=== PATIENT | female | born 1980 | race Caucasian/White ===

== ENCOUNTER 2016-11-09 22:25 | Emergency (ER) | payer OTHER ==
[2016-11-09 22:31] VITALS: RESP 18
[2016-11-09] MEDS ORDERED: DEXAMETHASONE SOD PHOSPHATE 10 MG/ML 1 ML VIAL IV STA (22:37)
[2016-11-09] MEDS ORDERED: diphenhydrAMINE 50 MG/ML 1 ML VIAL IVP STA (22:37)
[2016-11-09] MEDS ORDERED: KETOROLAC 30 MG/ML 1 ML VIAL IVP STA (22:37)
[2016-11-09] MEDS ORDERED: METOCLOPRAMIDE 5 MG/ML 2 ML VIAL IVP STA (22:37)
--- NOTE | 2016-11-09 22:41 | ED ---
Headache HPI - General Chief Complaint: Headache Stated Complaint: Headache Time Seen by Provider: 11/09/16 22:33 Mode of arrival: ambulatory Limitations: no limitations - History of Present Illness Initial Comments: Patient is a 36-year-old female presents with a chief complaint of headache. The patient has a history of migraine headaches. Patient states that her current headache has been going on for 6 days. She states that the pain is less intense in the morning however he gets worse throughout the day. Patient states that she is having a headache in the frontal parietal and occipital regions of her head. She states this is a very normal migraine for her. She takes Topamax daily for control of headaches and states that since she has been on the Topamax the frequency of her headaches has gotten less. Patient denies any neurological dysfunction. She does admit to mild nausea however she has not vomited. The patient has no other complaints at this time. - Related Data Home Medications Medication Instructions Recorded Confirmed Calcium Carbonate [Calcium] 600 mg PO BID 11/09/16 11/09/16 Lipitor (Unknown Dose) 1 tab PO HS 11/09/16 11/09/16 Naproxen (Unknown Dose) 1 tab PO Q6H PRN 11/09/16 11/09/16 Omeprazole 40 mg PO DAILY 11/09/16 11/09/16 Topiramate [Topamax] 25 mg PO BID 11/09/16 11/09/16 Allergies Allergy/AdvReac Type Severity Reaction Status Date / Time No Known Allergies Allergy Verified 11/09/16 22:39 Review of Systems ROS Statement: Those systems with pertinent positive or pertinent negative responses have been documented in the HPI. ROS Other: All systems not noted in ROS Statement are negative. Constitutional: Denies: fever, chills Eyes: Denies: vision change ENT: Denies: ear pain, throat pain Respiratory: Denies: cough, dyspnea Cardiovascular: Denies: chest pain Endocrine: Denies: fatigue Gastrointestinal: Reports: nausea. Denies: abdominal pain, vomiting Genitourinary: Denies: dysuria Musculoskeletal: Denies: back pain Skin: Denies: rash Neurological: Reports: headache. Denies: weakness, numbness, paresthesias, abnormal gait Past Medical History Past Medical History: Hyperlipidemia Additional Past Medical History / Comment(s): migraines History of Any Multi-Drug Resistant Organisms: None Reported Past Surgical History: Cholecystectomy, Hernia Repair, Tubal Ligation Past Psychological History: No Psychological Hx Reported Smoking Status: Current every day smoker Past Alcohol Use History: None Reported Past Drug Use History: None Reported General Exam Limitations: no limitations General appearance: alert, in no apparent distress Head exam: Present: atraumatic, normocephalic Eye exam: Present: normal appearance, PERRL, EOMI ENT exam: Present: normal exam Neck exam: Present: normal inspection. Absent: tenderness, meningismus Respiratory exam: Present: normal lung sounds bilaterally. Absent: respiratory distress Cardiovascular Exam: Present: regular rate, normal rhythm, normal heart sounds GI/Abdominal exam: Present: soft. Absent: distended, tenderness Rectal exam: Present: deferred Extremities exam: Present: normal inspection Back exam: Present: normal inspection Neurological exam: Present: alert, oriented X3 Psychiatric exam: Present: normal affect, normal mood Skin exam: Present: warm, dry, intact Course Vital Signs 11/09/16 22:27 Temperature 97.3 F L Pulse Rate 95 Respiratory 18 Rate Blood Pressure 119/78 O2 Sat by Pulse 99 Oximetry Medical Decision Making - Medical Decision Making The patient presents with a chief complaint of a migraine headache. Patient states that this is a very typical headache for her. Physical examination does not show any neurologic deficit. On initial evaluation, vital signs are stable. Patient was noted to gait normally. Patient will be given Toradol, Reglan, Benadryl, Decadron, and a liter of IV fluids. Patient will be reexamined. 11:34 PM On reevaluation, the patient states that her headache is almost completely resolved. At this time the patient would like to be discharged home. I discussed with the patient that she needs to follow up with her primary care physician or return to the emergency department if her symptoms worsen or change. At this time all of her questions are answered as best my ability, patient is stable for discharge. Disposition Clinical Impression: Migraine headache Disposition: HOME SELF-CARE Condition: Good Instructions: Acute Headache (ED) Referrals: Nonstaff,Physician [Primary Care Provider] - 1-2 days
[2016-11-10 00:01] VITALS: BP 144/69; PULSE 77; TEMP 97.7
== END 2016-11-10 | disposition home or self-care (01) ==
LOC: EC 22:25
DX: G43.909 Migraine, unspecified, not intractable, without status migrainosus (principal); E78.5 Hyperlipidemia, unspecified; F17.200 Nicotine dependence, unspecified, uncomplicated; Z79.899 Other long term (current) drug therapy
CPT/HCPCS: 99283; 96374; 96375 ×3; J1200; J1100; J2765; J1885

== ENCOUNTER 2016-12-23 20:18 | Emergency (ER) | payer OTHER ==
[2016-12-23 20:53] VITALS: BP 135/72; PULSE 107; RESP 20; TEMP 98.2
[2016-12-23] MEDS ORDERED: DEXAMETHASONE 4 MG TAB PO STA (22:11)
--- NOTE | 2016-12-23 22:16 | ED ---
ENT HPI - General Chief complaint: ENT Stated complaint: Fever Time Seen by Provider: 12/23/16 22:02 Source: patient Mode of arrival: ambulatory Limitations: no limitations - History of Present Illness Initial comments: Patient is a 36-year-old female presenting to the emergency department with chief complaint of sore throat that started at 2:30 AM when patient woke up last night. Patient reports chills. Patient reports pain with swallowing. Denies cough or ear pain, chest pain, or abdominal pain. Patient states she had diarrhea yesterday but none today. Patient denies dysuria or urgency. Patient states she took Motrin and Mucinex prior to arrival. - Related Data Home Medications Medication Instructions Recorded Confirmed Calcium Carbonate [Calcium] 600 mg PO BID 11/09/16 11/09/16 Lipitor (Unknown Dose) 1 tab PO HS 11/09/16 11/09/16 Naproxen (Unknown Dose) 1 tab PO Q6H PRN 11/09/16 11/09/16 Omeprazole 40 mg PO DAILY 11/09/16 11/09/16 Topiramate [Topamax] 25 mg PO BID 11/09/16 11/09/16 Allergies Allergy/AdvReac Type Severity Reaction Status Date / Time No Known Allergies Allergy Verified 12/23/16 20:53 Review of Systems ROS Statement: Those systems with pertinent positive or pertinent negative responses have been documented in the HPI. ROS Other: All systems not noted in ROS Statement are negative. Past Medical History Past Medical History: Hyperlipidemia Additional Past Medical History / Comment(s): migraines History of Any Multi-Drug Resistant Organisms: None Reported Past Surgical History: Cholecystectomy, Hernia Repair, Tubal Ligation Past Psychological History: No Psychological Hx Reported Smoking Status: Current every day smoker Past Alcohol Use History: None Reported Past Drug Use History: None Reported General Exam Limitations: no limitations General appearance: alert, in no apparent distress Head exam: Present: atraumatic, normocephalic, normal inspection Eye exam: Present: normal appearance. Absent: scleral icterus, conjunctival injection, periorbital swelling, periorbital tenderness ENT exam: Present: mucous membranes moist, TM's normal bilaterally, normal external ear exam. Absent: normal oropharynx (Posterior pharynx erythematous without exudate) Neck exam: Present: normal inspection, full ROM, lymphadenopathy (to right anterior neck). Absent: tenderness, meningismus Respiratory exam: Present: normal lung sounds bilaterally. Absent: respiratory distress, wheezes, rales, rhonchi Cardiovascular Exam: Present: normal rhythm, tachycardia, normal heart sounds. Absent: systolic murmur GI/Abdominal exam: Present: soft, normal bowel sounds. Absent: distended, tenderness Extremities exam: Present: normal inspection, full ROM, normal capillary refill Neurological exam: Present: alert, oriented X3, CN II-XII intact, normal gait, other (No focal deficits noted). Absent: motor sensory deficit Psychiatric exam: Present: normal affect, normal mood Skin exam: Present: warm, dry, intact, normal color Course Vital Signs 12/23/16 20:51 Temperature 98.2 F Pulse Rate 107 H Respiratory 20 Rate Blood Pressure 135/72 O2 Sat by Pulse 100 Oximetry Medical Decision Making - Medical Decision Making Acute pharyngitis, suspect viral. Strep screen negative. Influenza A and B PCR negative. Patient encouraged to continue Motrin for pain or fevers. Continue soft foods. Patient instructed to follow-up with primary care physician. Patient instructed to return to the emergency department with any new or worsening symptoms. - Lab Data Lab Results 12/23/16 12/23/16 Range/Units 22:10 22:10 Influenza Type A RNA Not Detected (Not Detectd) Influenza Type B (PCR) Not Detected (Not Detectd) Group A Strep Rapid Negative (Negative) Disposition Clinical Impression: Acute viral pharyngitis Disposition: HOME SELF-CARE Condition: Good Instructions: Pharyngitis (ED) Additional Instructions: Continue Tylenol or Motrin for fever and pain. Continue soft foods. Follow-up with primary care physician as needed. Please return to emergency department if symptoms do not improve or get worse. Referrals: Nonstaff,Physician [Primary Care Provider] - 1-2 days Time of Disposition: 22:54
== END 2016-12-23 22:58 | disposition home or self-care (01) ==
LOC: EC 20:18
DX: J02.9 Acute pharyngitis, unspecified (principal); E78.5 Hyperlipidemia, unspecified; F17.200 Nicotine dependence, unspecified, uncomplicated; Z79.899 Other long term (current) drug therapy
CPT/HCPCS: 87081; 87430; 87502; 99283; J8540

== ENCOUNTER 2017-01-11 16:19 | Emergency (ER) | payer OTHER ==
[2017-01-11 16:55] VITALS: RESP 18
--- NOTE | 2017-01-11 17:36 | ED ---
General Adult HPI - General Chief complaint: Abdominal Pain Stated complaint: Rash/Abd Pain Time Seen by Provider: 01/11/17 17:10 Source: patient, RN notes reviewed Mode of arrival: ambulatory Limitations: no limitations - History of Present Illness Initial comments: 36-year-old female presents emergency department with a chief complaint of diffuse itchy rash. Patient states that this rash started yesterday. Patient states she has had a bradycardia these under her breasts. Been on the rash is all over her body. Patient states that she did start a new lotion recently. Patient states she's had a little upper abdominal cramping with this as well. She denies any diarrhea any changes in urination or bowel bladder habits. She has a nausea vomiting any fever chills. Patient states she was concerned with a rash that she thought that she should be seen. She has a history of a rash like this about 23 years ago that went away with medicine but she states that they never found out what causes Either. They were concerned due to the continued symptoms. Patient denies any recent fever, chills, shortness of breath , chest pain, back pain, nausea vomiting, numbness or tingling, dysuria or hematuria, constipation or diarrhea, headaches or visual changes, or any other current symptoms. - Related Data Home Medications Medication Instructions Recorded Confirmed Calcium Carbonate [Calcium] 600 mg PO DAILY 01/11/17 01/11/17 Cranberry Fruit Extract [Cranberry] 500 mg PO DAILY 01/11/17 01/11/17 Flaxseed Oil [[place]-3 Flaxseed Oil] 1,000 mg PO DAILY 01/11/17 01/11/17 Multivit with Calcium,Iron,Min 1 tab PO DAILY 01/11/17 01/11/17 [Women's Multivitamin] Omeprazole 20 mg PO BID 01/11/17 01/11/17 Topiramate [Topamax] 50 mg PO BID 01/11/17 01/11/17 Vitamin B Complex 1 cap PO DAILY 01/11/17 01/11/17 Previous Rx's Medication Instructions Recorded Famotidine [Pepcid] 20 mg PO BID #10 tablet 01/11/17 Nystatin 100,000 Unit/gm Powd 1 applic TOPICAL TID 7 Days gm 01/11/17 [Mycostatin Powder] diphenhydrAMINE [Benadryl] 50 mg PO HS PRN #5 capsule 01/11/17 predniSONE 50 mg PO DAILY #5 tab 01/11/17 Allergies Allergy/AdvReac Type Severity Reaction Status Date / Time No Known Allergies Allergy Verified 01/11/17 17:17 Review of Systems ROS Statement: Those systems with pertinent positive or pertinent negative responses have been documented in the HPI. ROS Other: All systems not noted in ROS Statement are negative. Past Medical History Past Medical History: GERD/Reflux, Hyperlipidemia Additional Past Medical History / Comment(s): migraines History of Any Multi-Drug Resistant Organisms: None Reported Past Surgical History: Cholecystectomy, Ear Surgery, Hernia Repair, Orthopedic Surgery, Tubal Ligation Past Psychological History: No Psychological Hx Reported Smoking Status: Current every day smoker Past Alcohol Use History: None Reported Past Drug Use History: None Reported General Exam - General Exam Comments Initial Comments: General: The patient is awake and alert, in no distress, and does not appear acutely ill. Eye: Pupils are equal, round and reactive to light. Ears, nose, mouth and throat: There are moist mucous membranes. Neck: The neck is supple, there is no tenderness. Cardiovascular: There is a regular rate and rhythm. No murmur, rub or gallop is appreciated. Respiratory: Lungs are clear to auscultation, respirations are non-labored, breath sounds are equal. No wheezes, stridor, rales, or rhonchi. Gastrointestinal: Soft, non-distended, non-tender abdomen without masses or organomegaly noted. There is no rebound or guarding present. No CVA tenderness. Bowel sounds are unremarkable. Back: There is no tenderness to palpation in the midline. There is no obvious deformity. No rashes noted. Musculoskeletal: Normal ROM, no tenderness, There is no pedal edema. There is no calf tenderness or swelling. Sensation intact. Pulses equal bilaterally 2+. Neurological: CN II-XII intact, There are no obvious motor or sensory deficits. Coordination appears grossly intact. Speech is normal. Skin: Skin is warm and dry and no rashes or lesions are noted. Psychiatric: Cooperative, appropriate mood & affect, normal judgment. Limitations: no limitations Course Vital Signs 01/11/17 16:50 Temperature 98.2 F Pulse Rate 82 Respiratory 18 Rate Blood Pressure 124/74 O2 Sat by Pulse 98 Oximetry Medical Decision Making - Medical Decision Making 36-year-old female presents emergency 5 chief complaint of what appears to be a urticarial type rash as well as candidiasis to the under side of the breast. This time we will start patient on oral medications for her urticaria as well as a cream for her rash to the breast. We did discuss follow-up return parameters all questions. Patient stated that she understood and she is tender with this plan. All questions have been answered. Patient will be discharged. Disposition Clinical Impression: Urticaria, Candidiasis of breast Disposition: HOME SELF-CARE Condition: Stable Instructions: Urticaria (ED), Skin Yeast Infection (ED) Additional Instructions: Please use medication as discussed. Please follow up with family doctor if symptoms have not improved over the next two days. Please return to the emergency room if your symptoms increase or worsen or for any other concerns. Prescriptions: diphenhydrAMINE [Benadryl] 50 mg PO HS PRN #5 capsule PRN Reason: Itching Famotidine [Pepcid] 20 mg PO BID #10 tablet Nystatin 100,000 Unit/gm Powd [Mycostatin Powder] 1 applic TOPICAL TID 7 Days gm predniSONE 50 mg PO DAILY #5 tab Referrals: Jordy Figueroa DO [Doctor of Osteopathic Medicine] - 1-2 days Time of Disposition: 17:33
[2017-01-11 18:09] VITALS: BP 141/83; PULSE 100; TEMP 97.4
== END 2017-01-11 18:12 | disposition home or self-care (01) ==
LOC: EC 16:19
DX: L50.9 Urticaria, unspecified (principal); B37.89 Other sites of candidiasis; R10.10 Upper abdominal pain, unspecified; R00.1 Bradycardia, unspecified; R11.2 Nausea with vomiting, unspecified; K21.9 Gastro-esophageal reflux disease without esophagitis; F17.200 Nicotine dependence, unspecified, uncomplicated; Z79.899 Other long term (current) drug therapy; Z86.69 Personal history of other diseases of the nervous system and sense organs; Z90.49 Acquired absence of other specified parts of digestive tract
CPT/HCPCS: 99283

== ENCOUNTER 2017-10-16 21:26 | Emergency (ER) | payer OTHER ==
[2017-10-16 22:16] VITALS: RESP 18
[2017-10-16 22:54] LABS: Amorphous Sediment,Urine Rare /hpf; Appearance,Urine Turbid (Clear); Bacteria,Urine Occasional /hpf; Bilirubin,Urine Negative (Negative); Blood,Urine Negative (Negative); Color,Urine Yellow; Glucose,Urine (UA) Negative (Negative); Ketones,Urine Negative (Negative); Leukocyte Esterase,Urine Moderate (Negative); Nitrite,Urine Positive (Negative); PH, Urine 7.5 (5.0-8.0); Protein,Urine Negative (Negative); Specific Gravity,Urine 1.012 (1.001-1.035); Squamous Epithelial Cell,Urine 3 /hpf (0-4); Urobilinogen,Urine <2.0 mg/dL (<2.0); WBC,Urine 8 /hpf (0-5)
[2017-10-16 23:32] LABS: Basophils % (A) 0 %; Eosinophils # (A) 0.1 k/uL (0-0.7); Eosinophils % (A) 1 %; HCT 39.7 % (34.0-46.0); HGB 13.3 gm/dL (11.4-16.0); Lymphocytes # (A) 4.1 k/uL (1.0-4.8); Lymphocytes % (A) 40 %; MCHC 33.4 g/dL (31.0-37.0); MCV 86.9 fL (80.0-100.0); Mean Platelet Volume 6.4; Monocytes # (A) 0.4 k/uL (0-1.0); Monocytes % (A) 4 %; Neutrophils # (A) 5.4 k/uL (1.3-7.7); Neutrophils % (A) 53 %; Platelet Count 280 k/uL (150-450); RBC 4.58 m/uL (3.80-5.40); RDW 13.3 % (11.5-15.5); WBC 10.1 k/uL (3.8-10.6)
[2017-10-16 23:45] LABS: ALT 28 U/L (9-52); AST 19 U/L (14-36); Albumin 3.8 g/dL (3.5-5.0); Alkaline Phosphatase 92 U/L (38-126); Anion Gap 9 mmol/L; Blood Urea Nitrogen 19 mg/dL (7-17); Calcium 9.1 mg/dL (8.4-10.2); Carbon Dioxide 18 mmol/L (22-30); Chloride 111 mmol/L (98-107); Glucose 92 mg/dL (74-99); Potassium 3.6 mmol/L (3.5-5.1); Sodium 138 mmol/L (137-145); Total Bilirubin 0.3 mg/dL (0.2-1.3); Total Protein 6.8 g/dL (6.3-8.2)
[2017-10-17 00:07] LABS: Creatine Kinase 77 U/L (30-135)
[2017-10-17 00:20] LABS: Creatine Kinase MB 0.3 ng/mL (0.0-2.4); Troponin I <0.012 ng/mL (0.000-0.034)
--- NOTE | 2017-10-17 01:40 | ED ---
GI Bleed HPI - General Chief complaint: GI Bleed Stated complaint: Blood in stool Time Seen by Provider: 10/17/17 00:15 Source: patient Mode of arrival: ambulatory Limitations: no limitations - History of Present Illness Initial comments: This patient is a 37-year-old woman who presents to be evaluated for passing blood with some bowel movements. Patient relates that she had had a hard bowel movement, and then over the past couple of days she has had blood when she has a bowel movement and noticed it on the paper when wiping and also in the water of the toilet. Patient denies any abdominal or perianal pain today. She denies any symptoms of anemia including no chest pain, dyspnea, lightheadedness , palpitations or syncope MD complaint: blood on toilet paper, blood streaked stool Onset/Timin -: days(s) Quality: sharp Consistency: intermittent Improves with: none Worsens with: bowel movement Context: hemorrhoids Associated Symptoms: denies other symptoms - Related Data Home Medications Medication Instructions Recorded Confirmed Calcium Carbonate [Calcium] 600 mg PO DAILY 01/11/17 10/16/17 Cranberry Fruit Extract [Cranberry] 500 mg PO DAILY 01/11/17 10/16/17 Flaxseed Oil [[place]-3 Flaxseed Oil] 1,000 mg PO DAILY 01/11/17 10/16/17 Omeprazole 20 mg PO BID 01/11/17 10/16/17 Vitamin B Complex 1 cap PO DAILY 01/11/17 10/16/17 Naproxen Sodium [Aleve] 220 mg PO BID PRN 10/16/17 10/16/17 Topiramate [Topamax] 100 mg PO BID 10/16/17 10/16/17 Previous Rx's Medication Instructions Recorded EPINEPHrine (Auto Inject) [Epipen] 0.3 mg IM ONCE PRN #1 syringe 01/11/17 Docusate [Colace] 100 mg PO BID #20 capsule 10/17/17 Famotidine [Pepcid] 20 mg PO BID #14 tablet 10/17/17 Allergies Allergy/AdvReac Type Severity Reaction Status Date / Time No Known Allergies Allergy Verified 10/16/17 23:29 Review of Systems ROS Statement: Those systems with pertinent positive or pertinent negative responses have been documented in the HPI. ROS Other: All systems not noted in ROS Statement are negative. Constitutional: Denies: fever, chills, weakness Respiratory: Denies: cough, dyspnea Cardiovascular: Denies: chest pain, palpitations, edema, syncope Gastrointestinal: Reports: hematochezia. Denies: abdominal pain, nausea, vomiting, diarrhea, hematemesis, melena Genitourinary: Denies: dysuria, hematuria Musculoskeletal: Denies: back pain Skin: Denies: rash Neurological: Denies: headache, weakness Hematological/Lymphatic: Denies: easy bleeding Past Medical History Past Medical History: GERD/Reflux, Hyperlipidemia Additional Past Medical History / Comment(s): migraines, History of Any Multi-Drug Resistant Organisms: None Reported Past Surgical History: Cholecystectomy, Ear Surgery, Hernia Repair, Orthopedic Surgery, Tubal Ligation Past Psychological History: No Psychological Hx Reported Smoking Status: Current every day smoker Past Alcohol Use History: Occasional Past Drug Use History: None Reported General Exam Limitations: no limitations General appearance: alert, in no apparent distress Head exam: Present: atraumatic, normocephalic Eye exam: Present: normal appearance. Absent: scleral icterus, conjunctival injection Neck exam: Present: normal inspection Respiratory exam: Present: normal lung sounds bilaterally. Absent: respiratory distress, wheezes, rales, rhonchi, stridor Cardiovascular Exam: Present: regular rate, normal rhythm, normal heart sounds. Absent: systolic murmur, diastolic murmur, rubs, gallop GI/Abdominal exam: Present: soft, normal bowel sounds. Absent: distended, tenderness, guarding, rebound, rigid, mass, pulsatile mass, hernia Rectal exam: Present: normal inspection, normal rectal tone, tenderness, other ( There is an anal fissure present). Absent: black stool, bloody stool, hemorrhoids, mass Extremities exam: Present: normal inspection, normal capillary refill. Absent: pedal edema, calf tenderness Back exam: Present: normal inspection. Absent: CVA tenderness (R), CVA tenderness (L) Skin exam: Present: warm, dry, intact, normal color. Absent: rash Course Vital Signs 10/16/17 10/16/17 10/17/17 22:11 23:56 01:58 Temperature 98.2 F 98.0 F Pulse Rate 77 80 70 Respiratory 18 18 18 Rate Blood Pressure 116/80 107/73 121/70 O2 Sat by Pulse 97 97 98 Oximetry Medical Decision Making - Medical Decision Making Patient is a 37-year-old woman who has had blood with bowel movements. On exam there is an anal fissure. The patient is hemodynamically stable and her blood counts are normal as well. We discussed further care and follow-up as well as return parameters. - Lab Data Result diagrams: 10/16/17 23:01 10/16/17 23:01 Lab Results 10/16/17 10/16/17 10/16/17 Range/Units 22:16 23:01 23:01 WBC 10.1 (3.8-10.6) k/uL RBC 4.58 (3.80-5.40) m/uL Hgb 13.3 (11.4-16.0) gm/dL Hct 39.7 (34.0-46.0) % MCV 86.9 (80.0-100.0) fL MCH 29.0 (25.0-35.0) pg MCHC 33.4 (31.0-37.0) g/dL RDW 13.3 (11.5-15.5) % Plt Count 280 (150-450) k/uL Neutrophils % 53 % Lymphocytes % 40 % Monocytes % 4 % Eosinophils % 1 % Basophils % 0 % Neutrophils # 5.4 (1.3-7.7) k/uL Lymphocytes # 4.1 (1.0-4.8) k/uL Monocytes # 0.4 (0-1.0) k/uL Eosinophils # 0.1 (0-0.7) k/uL Basophils # 0.0 (0-0.2) k/uL APTT (22.0-30.0) sec Sodium (137-145) mmol/L Potassium (3.5-5.1) mmol/L Chloride (98-107) mmol/L Carbon Dioxide (22-30) mmol/L Anion Gap mmol/L BUN (7-17) mg/dL Creatinine (0.52-1.04) mg/dL Est GFR (CKD-EPI)AfAm (>60 ml/min/1.73 sqM) Est GFR (CKD-EPI)NonAf (>60 ml/min/1.73 sqM) Glucose (74-99) mg/dL Calcium (8.4-10.2) mg/dL Total Bilirubin (0.2-1.3) mg/dL AST (14-36) U/L ALT (9-52) U/L Alkaline Phosphatase (38-126) U/L Total Creatine Kinase 77 (30-135) U/L CK-MB (CK-2) 0.3 (0.0-2.4) ng/mL CK-MB (CK-2) Rel Index 0.4 Troponin I <0.012 (0.000-0.034) ng/mL Total Protein (6.3-8.2) g/dL Albumin (3.5-5.0) g/dL Urine Color Yellow Urine Appearance Turbid H (Clear) Urine pH 7.5 (5.0-8.0) Ur Specific [place] 1.012 (1.001-1.035) Urine Protein Negative (Negative) Urine Glucose (UA) Negative (Negative) Urine Ketones Negative (Negative) Urine Blood Negative (Negative) Urine Nitrite Positive H (Negative) Urine Bilirubin Negative (Negative) Urine Urobilinogen <2.0 (<2.0) mg/dL Ur Leukocyte Esterase Moderate H (Negative) Urine WBC 8 H (0-5) /hpf Ur Squamous Epith Cells 3 (0-4) /hpf Amorphous Sediment Rare H (None) /hpf Urine Bacteria Occasional H (None) /hpf Blood Type Blood Type Confirm Blood Type Recheck Antibody Screen Spec Expiration Date 10/16/17 10/16/17 10/16/17 Range/Units 23:01 23:01 23:01 WBC (3.8-10.6) k/uL RBC (3.80-5.40) m/uL Hgb (11.4-16.0) gm/dL Hct (34.0-46.0) % MCV (80.0-100.0) fL MCH (25.0-35.0) pg MCHC (31.0-37.0) g/dL RDW (11.5-15.5) % Plt Count (150-450) k/uL Neutrophils % % Lymphocytes % % Monocytes % % Eosinophils % % Basophils % % Neutrophils # (1.3-7.7) k/uL Lymphocytes # (1.0-4.8) k/uL Monocytes # (0-1.0) k/uL Eosinophils # (0-0.7) k/uL Basophils # (0-0.2) k/uL APTT 22.5 (22.0-30.0) sec Sodium 138 (137-145) mmol/L Potassium 3.6 (3.5-5.1) mmol/L Chloride 111 H (98-107) mmol/L Carbon Dioxide 18 L (22-30) mmol/L Anion Gap 9 mmol/L BUN 19 H (7-17) mg/dL Creatinine 0.71 (0.52-1.04) mg/dL Est GFR (CKD-EPI)AfAm >90 (>60 ml/min/1.73 sqM) Est GFR (CKD-EPI)NonAf >90 (>60 ml/min/1.73 sqM) Glucose 92 (74-99) mg/dL Calcium 9.1 (8.4-10.2) mg/dL Total Bilirubin 0.3 (0.2-1.3) mg/dL AST 19 (14-36) U/L ALT 28 (9-52) U/L Alkaline Phosphatase 92 (38-126) U/L Total Creatine Kinase (30-135) U/L CK-MB (CK-2) (0.0-2.4) ng/mL CK-MB (CK-2) Rel Index Troponin I (0.000-0.034) ng/mL Total Protein 6.8 (6.3-8.2) g/dL Albumin 3.8 (3.5-5.0) g/dL Urine Color Urine Appearance (Clear) Urine pH (5.0-8.0) Ur Specific [place] (1.001-1.035) Urine Protein (Negative) Urine Glucose (UA) (Negative) Urine Ketones (Negative) Urine Blood (Negative) Urine Nitrite (Negative) Urine Bilirubin (Negative) Urine Urobilinogen (<2.0) mg/dL Ur Leukocyte Esterase (Negative) Urine WBC (0-5) /hpf Ur Squamous Epith Cells (0-4) /hpf Amorphous Sediment (None) /hpf Urine Bacteria (None) /hpf Blood Type O Positive Blood Type Confirm Blood Type Recheck CABO Indicated Antibody Screen NEGATIVE Spec Expiration Date 10/19/2017 - 230010/16/17 Range/Units 23:23 WBC (3.8-10.6) k/uL RBC (3.80-5.40) m/uL Hgb (11.4-16.0) gm/dL Hct (34.0-46.0) % MCV (80.0-100.0) fL MCH (25.0-35.0) pg MCHC (31.0-37.0) g/dL RDW (11.5-15.5) % Plt Count (150-450) k/uL Neutrophils % % Lymphocytes % % Monocytes % % Eosinophils % % Basophils % % Neutrophils # (1.3-7.7) k/uL Lymphocytes # (1.0-4.8) k/uL Monocytes # (0-1.0) k/uL Eosinophils # (0-0.7) k/uL Basophils # (0-0.2) k/uL APTT (22.0-30.0) sec Sodium (137-145) mmol/L Potassium (3.5-5.1) mmol/L Chloride (98-107) mmol/L Carbon Dioxide (22-30) mmol/L Anion Gap mmol/L BUN (7-17) mg/dL Creatinine (0.52-1.04) mg/dL Est GFR (CKD-EPI)AfAm (>60 ml/min/1.73 sqM) Est GFR (CKD-EPI)NonAf (>60 ml/min/1.73 sqM) Glucose (74-99) mg/dL Calcium (8.4-10.2) mg/dL Total Bilirubin (0.2-1.3) mg/dL AST (14-36) U/L ALT (9-52) U/L Alkaline Phosphatase (38-126) U/L Total Creatine Kinase (30-135) U/L CK-MB (CK-2) (0.0-2.4) ng/mL CK-MB (CK-2) Rel Index Troponin I (0.000-0.034) ng/mL Total Protein (6.3-8.2) g/dL Albumin (3.5-5.0) g/dL Urine Color Urine Appearance (Clear) Urine pH (5.0-8.0) Ur Specific [place] (1.001-1.035) Urine Protein (Negative) Urine Glucose (UA) (Negative) Urine Ketones (Negative) Urine Blood (Negative) Urine Nitrite (Negative) Urine Bilirubin (Negative) Urine Urobilinogen (<2.0) mg/dL Ur Leukocyte Esterase (Negative) Urine WBC (0-5) /hpf Ur Squamous Epith Cells (0-4) /hpf Amorphous Sediment (None) /hpf Urine Bacteria (None) /hpf Blood Type Blood Type Confirm O Positive Blood Type Recheck Antibody Screen Spec Expiration Date Disposition Clinical Impression: Anal fissure Disposition: HOME SELF-CARE Condition: Good Instructions: Gastrointestinal Bleeding (ED) Prescriptions: Docusate [Colace] 100 mg PO BID #20 capsule Famotidine [Pepcid] 20 mg PO BID #14 tablet Is patient prescribed a controlled substance at d/c from ED?: No Referrals: None,Stated [Primary Care Provider] - 1-2 days Emilia Kong MD [STAFF PHYSICIAN] - 1-2 days
[2017-10-17 01:59] VITALS: BP 121/70; PULSE 70; TEMP 98
== END 2017-10-17 02:13 | disposition home or self-care (01) ==
LOC: EC 21:26
DX: K60.2 Anal fissure, unspecified (principal); K21.9 Gastro-esophageal reflux disease without esophagitis; E78.5 Hyperlipidemia, unspecified; G43.909 Migraine, unspecified, not intractable, without status migrainosus; F17.200 Nicotine dependence, unspecified, uncomplicated; Z79.899 Other long term (current) drug therapy; Z90.49 Acquired absence of other specified parts of digestive tract
CPT/HCPCS: 36415; 80053; 81001; 82550; 82553; 84484; 85025; 85730; 86850; 86900; 86901; 99284

== ENCOUNTER 2018-04-18 17:31 | Emergency (ER) | payer OTHER ==
[2018-04-18 17:35] VITALS: TEMP 97.7
[2018-04-18] MEDS ORDERED: SODIUM CHLORIDE 0.9% 1,000 ML IV ONE (17:44)
[2018-04-18] MEDS ORDERED: KETOROLAC 30 MG/ML 1 ML VIAL IVP STA (17:44)
[2018-04-18] MEDS ORDERED: diphenhydrAMINE 50 MG/ML 1 ML VIAL IVP STA (17:44)
[2018-04-18] MEDS ORDERED: METOCLOPRAMIDE 5 MG/ML 2 ML VIAL IVP STA (17:44)
--- NOTE | 2018-04-18 18:10 | ED ---
Headache HPI - General Chief Complaint: Headache Stated Complaint: migraine Time Seen by Provider: 04/18/18 17:36 Source: patient, RN notes reviewed Mode of arrival: ambulatory Limitations: no limitations - History of Present Illness Initial Comments: 37-year-old female presents emergency Department chief complaint of migraine headaches. Patient states that she has suffered with them for last 10 years is scheduled to see a neurologist next week. Patient states that she was on Topamax but has ran out and was unable to get into her physician for this. Patient denies any focal weakness. Patient states this feels like her typical migraine headache which is diffuse in nature she does have some mild photophobia. Intermittent nausea no vomiting. Patient has tried some Tylenol with no relief. Patient denies any head trauma. Denies any chest pain or shortness breath. - Related Data Home Medications Medication Instructions Recorded Confirmed Omeprazole 20 mg PO BID 01/11/17 04/18/18 Topiramate [Topamax] 100 mg PO BID 10/16/17 04/18/18 Naproxen [Naprosyn] 500 mg PO Q6H 04/18/18 04/18/18 Previous Rx's Medication Instructions Recorded EPINEPHrine (Auto Inject) [Epipen] 0.3 mg IM ONCE PRN #1 syringe 01/11/17 Topiramate [Topamax] 50 mg PO BID #20 tab 04/18/18 Allergies Allergy/AdvReac Type Severity Reaction Status Date / Time latex Allergy Rash/Hives Verified 04/18/18 17:53 Review of Systems ROS Statement: Those systems with pertinent positive or pertinent negative responses have been documented in the HPI. ROS Other: All systems not noted in ROS Statement are negative. Past Medical History Past Medical History: GERD/Reflux, Hyperlipidemia Additional Past Medical History / Comment(s): migraines, History of Any Multi-Drug Resistant Organisms: None Reported Past Surgical History: Cholecystectomy, Ear Surgery, Hernia Repair, Orthopedic Surgery, Tubal Ligation Past Psychological History: No Psychological Hx Reported Smoking Status: Current every day smoker Past Alcohol Use History: Occasional Past Drug Use History: None Reported General Exam Limitations: no limitations General appearance: alert, in no apparent distress Head exam: Present: atraumatic, normocephalic, normal inspection Eye exam: Present: normal appearance, PERRL, EOMI. Absent: scleral icterus, conjunctival injection, periorbital swelling ENT exam: Present: normal exam, normal oropharynx, mucous membranes moist, TM's normal bilaterally, normal external ear exam Neck exam: Present: normal inspection, full ROM. Absent: tenderness, meningismus, lymphadenopathy Respiratory exam: Present: normal lung sounds bilaterally. Absent: respiratory distress, wheezes, rales, rhonchi, stridor Cardiovascular Exam: Present: regular rate, normal rhythm, normal heart sounds. Absent: systolic murmur, diastolic murmur, rubs, gallop, clicks GI/Abdominal exam: Present: soft, normal bowel sounds. Absent: distended, tenderness, guarding, rebound, rigid Neurological exam: Present: alert, oriented X3, CN II-XII intact, reflexes normal, other (Finger to nose intact bilaterally without shooting, heel to mo normal). Absent: motor sensory deficit Skin exam: Present: warm, dry, intact, normal color. Absent: rash Course Vital Signs 04/18/18 04/18/18 17:32 18:28 Temperature 97.7 F Pulse Rate 89 87 Respiratory 18 20 Rate Blood Pressure 129/81 120/81 O2 Sat by Pulse 97 98 Oximetry Medical Decision Making - Medical Decision Making 37-year-old female presented for migraine headache. Patient has underlying chronic migraines. She did receive Toradol, Reglan, IV fluids, Benadryl and her headache has resolved. Patient has follow-up next week with urology and return parameters were discussed. Disposition Clinical Impression: Migraine Disposition: HOME SELF-CARE Condition: Stable Instructions (If sedation given, give patient instructions): Acute Headache (ED) Additional Instructions: Please return to the Emergency Department if symptoms worsen or any other concerns. Prescriptions: Topiramate [Topamax] 50 mg PO BID #20 tab Is patient prescribed a controlled substance at d/c from ED?: No Referrals: Nonstaff,Physician [Primary Care Provider] - 1-2 days Time of Disposition: 19:10
[2018-04-18 19:13] VITALS: BP 110/68; PULSE 83; RESP 15
== END 2018-04-18 19:21 | disposition home or self-care (01) ==
LOC: EC 17:31
DX: G43.909 Migraine, unspecified, not intractable, without status migrainosus (principal); K21.9 Gastro-esophageal reflux disease without esophagitis; F17.200 Nicotine dependence, unspecified, uncomplicated; Z91.040 Latex allergy status; Z79.1 Long term (current) use of non-steroidal anti-inflammatories (NSAID); Z79.899 Other long term (current) drug therapy
CPT/HCPCS: 99283; 96374; 96375 ×2; 96361; J1200; J2765; J1885

== ENCOUNTER 2018-08-25 20:00 | Emergency (ER) | payer OTHER ==
[2018-08-25 20:11] VITALS: RESP 17
[2018-08-25] MEDS ORDERED: DEXAMETHASONE SOD PHOSPHATE 10 MG/ML 1 ML VIAL IM STA (20:49)
--- NOTE | 2018-08-25 21:22 | ED ---
Allergic Reaction HPI - General Chief complaint: Allergic Reaction Stated complaint: Poss allergic reaction, throat pain Time Seen by Provider: 08/25/18 20:17 Source: patient Mode of arrival: ambulatory - History of Present Illness Initial Comments: Patient is a 38-year-old female presenting to emergency Department with throat discomfort. Patient reports approximately 1 week ago she received a bee sting along the anterior aspect of the right lower leg. Patient reports she is ALLERGIC to bee venom. Patient reports taking Benadryl at time of incident because she did not have an EpiPen with her. At the time of incident patient reports her "throat was swelling up" but states the Benadryl help with the swelling. Patient reports ever since then she feels discomfort in her throat. Patient denies difficulty swallowing, drooling, neck swelling, nausea, vomiting, headache. Patient denies taking any other medication to alleviate his symptoms. - Related Data Home Medications Medication Instructions Recorded Confirmed Omeprazole 20 mg PO BID 01/11/17 08/25/18 Topiramate [Topamax] 100 mg PO BID 10/16/17 08/25/18 Naproxen [Naprosyn] 500 mg PO BID 04/18/18 08/25/18 Albuterol Inhaler [Ventolin Hfa 1 - 2 puff INHALATION RT-Q6H PRN 08/25/18 08/25/18 Inhaler] Amitriptyline HCl [Elavil] 50 mg PO HS 08/25/18 08/25/18 Atorvastatin [Lipitor] 20 mg PO DAILY 08/25/18 08/25/18 Galcanezumab-Gnlm [Emgality] 120 mg SQ Q28D 08/25/18 08/25/18 Allergies Allergy/AdvReac Type Severity Reaction Status Date / Time latex Allergy Rash/Hives Verified 08/25/18 20:47 Review of Systems ROS Statement: Those systems with pertinent positive or pertinent negative responses have been documented in the HPI. ROS Other: All systems not noted in ROS Statement are negative. Past Medical History Past Medical History: GERD/Reflux, Hyperlipidemia Additional Past Medical History / Comment(s): migraines, History of Any Multi-Drug Resistant Organisms: None Reported Past Surgical History: Cholecystectomy, Ear Surgery, Hernia Repair, Orthopedic Surgery, Tubal Ligation Past Psychological History: No Psychological Hx Reported Smoking Status: Current every day smoker Past Alcohol Use History: Occasional Past Drug Use History: None Reported General Exam Limitations: no limitations General appearance: alert, in no apparent distress Head exam: Present: atraumatic, normocephalic, normal inspection Eye exam: Present: normal appearance, PERRL, EOMI Pupils: Present: normal accommodation ENT exam: Present: normal exam, normal oropharynx (No lesions, normal tonsils, no uveal deviation, no erythema or edema,), mucous membranes moist, TM's normal bilaterally, normal external ear exam Neck exam: Present: normal inspection, full ROM. Absent: tenderness, meningismus, lymphadenopathy Respiratory exam: Present: normal lung sounds bilaterally Cardiovascular Exam: Present: regular rate, normal rhythm, normal heart sounds Extremities exam: Present: normal inspection, full ROM Back exam: Present: normal inspection, full ROM Neurological exam: Present: alert, oriented X3 Psychiatric exam: Present: normal affect, normal mood Skin exam: Present: warm, intact, normal color Course Vital Signs 08/25/18 20:06 Temperature 97.7 F Pulse Rate 119 H Respiratory 17 Rate Blood Pressure 147/105 O2 Sat by Pulse 98 Oximetry Medical Decision Making - Medical Decision Making Patient is a 2-year-old female presents emergency Department with throat discomfort. Patient was given 10 mg of Decadron. Patient reports feeling much better and the discomfort is completely gone. Patient advised to follow-up with an ENT specialist. Strict return parameters were thoroughly discussed with patient who is understanding and agreeable. Case discussed with physician. Disposition Clinical Impression: Throat discomfort Disposition: HOME SELF-CARE Condition: Stable Instructions (If sedation given, give patient instructions): Anaphylaxis (ED) Additional Instructions: Please follow-up with an ENT. Please return to emergency department if symptoms worsen. Is patient prescribed a controlled substance at d/c from ED?: No Referrals: Nonstaff,Physician [Primary Care Provider] - 1-2 days Harish Phelps DO [Doctor of Osteopathic Medicine] - 1-2 days Time of Disposition: 21:40
[2018-08-25 22:16] VITALS: BP 126/86; PULSE 91; TEMP 98.6
== END 2018-08-25 22:15 | disposition home or self-care (01) ==
LOC: EC 20:00
DX: R07.0 Pain in throat (principal); K21.9 Gastro-esophageal reflux disease without esophagitis; E78.5 Hyperlipidemia, unspecified; G43.909 Migraine, unspecified, not intractable, without status migrainosus; F17.200 Nicotine dependence, unspecified, uncomplicated; Z79.1 Long term (current) use of non-steroidal anti-inflammatories (NSAID); Z79.899 Other long term (current) drug therapy; Z91.040 Latex allergy status
CPT/HCPCS: 99283; 96372; J1100

== ENCOUNTER 2018-12-15 16:16 | Emergency (ER) | payer OTHER ==
[2018-12-15 16:34] VITALS: BP 123/88; PULSE 82; RESP 19; TEMP 97.8
--- NOTE | 2018-12-15 17:03 | ED ---
ENT HPI - General Chief complaint: ENT Stated complaint: poss FB in throat Time Seen by Provider: 12/15/18 16:38 Source: patient, RN notes reviewed, old records reviewed Mode of arrival: ambulatory Limitations: no limitations - History of Present Illness Initial comments: This is a 2-year-old female presenting with what she feels a foreign body in her throat she fell she felt last night. For evaluation of foreign body in throat. Patient denying difficulty swallowing or eating thinks symptoms of been persistent August. Patient states she tried to stick her finger until yesterday was able to find or feel something back there but was unable to notice anything on the mirror able to eat and drink appropriately MD complaint: sore throat (Feels like she has foreign body in throat) -: month(s) Location: throat Severity: mild Severity scale (1-10): 3 Quality: stabbing Consistency: intermittent Improves with: none Worsens with: none Associated Symptoms: pain with swallowing - Related Data Home Medications Medication Instructions Recorded Confirmed Omeprazole 20 mg PO BID 01/11/17 08/25/18 Topiramate [Topamax] 100 mg PO BID 10/16/17 08/25/18 Naproxen [Naprosyn] 500 mg PO BID 04/18/18 08/25/18 Albuterol Inhaler [Ventolin Hfa 1 - 2 puff INHALATION RT-Q6H PRN 08/25/18 08/25/18 Inhaler] Amitriptyline HCl [Elavil] 50 mg PO HS 08/25/18 08/25/18 Atorvastatin [Lipitor] 20 mg PO DAILY 08/25/18 08/25/18 Galcanezumab-Gnlm [Emgality] 120 mg SQ Q28D 08/25/18 08/25/18 Allergies Allergy/AdvReac Type Severity Reaction Status Date / Time atorvastatin [From Lipitor] Allergy Unknown Verified 12/15/18 16:34 bee pollen Allergy Swelling Verified 12/15/18 16:34 latex Allergy Rash/Hives Verified 08/25/18 20:47 Review of Systems ROS Statement: Those systems with pertinent positive or pertinent negative responses have been documented in the HPI. ROS Other: All systems not noted in ROS Statement are negative. Past Medical History Past Medical History: GERD/Reflux, Hyperlipidemia Additional Past Medical History / Comment(s): migraines, History of Any Multi-Drug Resistant Organisms: None Reported Past Surgical History: Cholecystectomy, Ear Surgery, Hernia Repair, Orthopedic Surgery, Tubal Ligation Past Psychological History: No Psychological Hx Reported Smoking Status: Current every day smoker Past Alcohol Use History: Occasional Past Drug Use History: None Reported General Exam Limitations: no limitations General appearance: alert, in no apparent distress Head exam: Present: atraumatic, normocephalic, normal inspection Eye exam: Present: normal appearance, PERRL, EOMI. Absent: scleral icterus, conjunctival injection, periorbital swelling ENT exam: Present: normal exam, mucous membranes moist Neck exam: Present: normal inspection. Absent: tenderness, meningismus, lymphadenopathy Respiratory exam: Present: normal lung sounds bilaterally. Absent: respiratory distress, wheezes, rales, rhonchi, stridor Cardiovascular Exam: Present: regular rate, normal rhythm, normal heart sounds. Absent: systolic murmur, diastolic murmur, rubs, gallop, clicks GI/Abdominal exam: Present: soft, normal bowel sounds. Absent: distended, tenderness, guarding, rebound, rigid Extremities exam: Present: normal inspection, full ROM, normal capillary refill. Absent: tenderness, pedal edema, joint swelling, calf tenderness Back exam: Present: normal inspection Neurological exam: Present: alert, oriented X3, CN II-XII intact Psychiatric exam: Present: normal affect, normal mood Skin exam: Present: warm, dry, intact, normal color. Absent: rash Course Vital Signs 12/15/18 16:31 Temperature 97.8 F Pulse Rate 82 Respiratory 19 Rate Blood Pressure 123/88 O2 Sat by Pulse 97 Oximetry - Reevaluation(s) Reevaluation #1: 12/15/18 17:19 Medical records reviewed patient informed that no foreign bodies noticed on exam Reevaluation #2: 12/15/18 17:19 A she informed we will get computed tomography scan and follow-up with ENT if we have no abnormalities found on CT Reevaluation #3: 12/15/18 17:19 Went to get patient for computed tomography scan patient had left department Reevaluation #4: 12/15/18 17:19 Called patient unable to get ahold of secondary to elopement trying to clear up any confusion there might have been about the plan Medical Decision Making - Medical Decision Making 38 female the ER for evaluation sore throat. Patient feels she has foreign body in throat, before imaging could be obtained patient eloped from emergency department. Attempt 3 patient was unsuccessful Disposition Clinical Impression: Pharyngeal foreign body, Normal exam Narrative: Elopement Disposition: Left Against Medical Advice Condition: Undetermined Is patient prescribed a controlled substance at d/c from ED?: No Referrals: None,Stated [Primary Care Provider] - 1-2 days
== END 2018-12-15 17:10 | disposition left against medical advice (07) ==
LOC: EC 16:16
DX: T17.208A Unspecified foreign body in pharynx causing other injury, initial encounter (principal); K21.9 Gastro-esophageal reflux disease without esophagitis; E78.5 Hyperlipidemia, unspecified; F17.200 Nicotine dependence, unspecified, uncomplicated; Z88.8 Allergy status to other drugs, medicaments and biological substances; Z91.030 Bee allergy status; Z91.040 Latex allergy status; Z79.1 Long term (current) use of non-steroidal anti-inflammatories (NSAID); Z79.899 Other long term (current) drug therapy; Z86.69 Personal history of other diseases of the nervous system and sense organs; Z53.20 Procedure and treatment not carried out because of patient's decision for unspecified reasons
CPT/HCPCS: 99283

== ENCOUNTER 2021-02-05 20:11 | Emergency (ER) | payer OTHER ==
[2021-02-05 21:04] VITALS: BP 110/76; PULSE 84; RESP 20; TEMP 98.6
[2021-02-05 21:43] LABS: Amorphous Sediment,Urine Occasional /hpf; Appearance,Urine Cloudy (Clear); Bacteria,Urine Few /hpf; Bilirubin,Urine Negative (Negative); Blood,Urine Negative (Negative); Color,Urine Yellow; Glucose,Urine (UA) Negative (Negative); Ketones,Urine Negative (Negative); Leukocyte Esterase,Urine Small (Negative); Mucus,Urine Rare /hpf; Nitrite,Urine Negative (Negative); PH, Urine 8.5 (5.0-8.0); Protein,Urine Negative (Negative); RBC,Urine 3 /hpf (0-5); Specific Gravity,Urine 1.018 (1.001-1.035); Squamous Epithelial Cell,Urine 3 /hpf (0-4); Urobilinogen,Urine <2.0 mg/dL (<2.0); WBC,Urine 3 /hpf (0-5)
--- NOTE | 2021-02-05 23:40 | ED ---
General Adult HPI - General Chief complaint: Abdominal Pain Stated complaint: Abd Pain Time Seen by Provider: 02/05/21 23:18 Source: patient Mode of arrival: ambulatory - History of Present Illness Initial comments: Dictation was produced using [employer] dictation software. please excuse any grammatical, word or spelling errors. Chief Complaint: 40-year-old female presents to the emergency department with abdominal pain History of Present Illness: Patient is a 40-year-old female she presents to emergency department with episodic right abdominal pain. Patient denies any symptoms currently. States that over the last 24 hours she's been a lot more active. She states with her new job she is been walking around a lot more. Patient states her symptoms are exacerbated by movement. She denies any fevers. She denies any nausea or vomiting. No diarrhea. She is concerned about acute appendicitis. States the pain sometimes radiates to her left back hip area. Denies any vaginal discharge or vaginal bleeding. Symptoms. She still has her appendix. She has history of cholecystectomy, hernia repair and bilateral tubal ligation. The ROS documented in this emergency department record has been reviewed and confirmed by me. Those systems with pertinent positive or negative responses have been documented in the HPI. All other systems are other negative and/or noncontributory. PHYSICAL EXAM: General Impression: Alert and oriented x3, not in acute distress HEENT: Normocephalic atraumatic, extra-ocular movements intact, pupils equal and reactive to light bilaterally, mucous membranes moist. Cardiovascular: Heart regular rate and rhythm Chest: Able to complete full sentences, no retractions, no tachypnea Abdomen: abdomen soft, non-tender, non-distended, no organomegaly, no pain in McBurney's point Musculoskeletal: Pulses present and equal in all extremities, no peripheral edema Motor: no focal deficits noted Neurological: CN II-XII grossly intact, no focal motor or sensory deficits noted Skin: Intact with no visualized rashes Psych: Normal affect and mood ED course: 40-year-old female presents to the emergency Department with chief complaint of right lower quadrant abdominal pain. Patient does not have features suggesting acute appendicitis per she has no pain at McBurney's point, she is no fevers nausea. Abdominal exam is completely benign. She is well- appearing in no acute distress. Vital signs are stable. Afebrile. Urinalysis is unremarkable. Patient's well-appearing. Patient will be discharged. Discussed patient that there is concern that perhaps her symptoms are musculoskeletal in nature with repeat abdominal strain or right hip issue. She is advised to follow-up with her primary care doctor. Patient requesting work note for tomorrow. - Related Data Home Medications Medication Instructions Recorded Confirmed Omeprazole 20 mg PO BID 01/11/17 08/25/18 Topiramate [Topamax] 100 mg PO BID 10/16/17 08/25/18 Naproxen [Naprosyn] 500 mg PO BID 04/18/18 08/25/18 Albuterol Inhaler (Mhu) [Ventolin 1 - 2 puff INHALATION RT-Q6H PRN 08/25/18 08/25/18 Hfa Inhaler] Amitriptyline HCl [Elavil] 50 mg PO HS 08/25/18 08/25/18 Atorvastatin [Lipitor] 20 mg PO DAILY 08/25/18 08/25/18 Galcanezumab-Gnlm [Emgality] 120 mg SQ Q28D 08/25/18 08/25/18 Allergies Allergy/AdvReac Type Severity Reaction Status Date / Time atorvastatin [From Lipitor] Allergy Unknown Verified 02/05/21 21:00 bee pollen Allergy Swelling Verified 02/05/21 21:00 latex Allergy Rash/Hives Verified 02/05/21 21:00 Review of Systems ROS Statement: Those systems with pertinent positive or pertinent negative responses have been documented in the HPI. ROS Other: All systems not noted in ROS Statement are negative. Past Medical History Past Medical History: GERD/Reflux, Hyperlipidemia Additional Past Medical History / Comment(s): migraines, History of Any Multi-Drug Resistant Organisms: None Reported Past Surgical History: Cholecystectomy, Ear Surgery, Hernia Repair, Orthopedic Surgery, Tubal Ligation Past Psychological History: No Psychological Hx Reported Smoking Status: Current every day smoker Past Alcohol Use History: Occasional Past Drug Use History: None Reported Course Vital Signs 02/05/21 21:00 Temperature 98.6 F Pulse Rate 84 Respiratory 20 Rate Blood Pressure 110/76 O2 Sat by Pulse 99 Oximetry Medical Decision Making - Lab Data Lab Results 02/05/21 02/05/21 Range/Units 21:13 21:13 Urine Color Yellow Urine Appearance Cloudy H (Clear) Urine pH 8.5 H (5.0-8.0) Ur Specific [place] 1.018 (1.001-1.035) Urine Protein Negative (Negative) Urine Glucose (UA) Negative (Negative) Urine Ketones Negative (Negative) Urine Blood Negative (Negative) Urine Nitrite Negative (Negative) Urine Bilirubin Negative (Negative) Urine Urobilinogen <2.0 (<2.0) mg/dL Ur Leukocyte Esterase Small H (Negative) Urine RBC 3 (0-5) /hpf Urine WBC 3 (0-5) /hpf Ur Squamous Epith Cells 3 (0-4) /hpf Amorphous Sediment Occasional H (None) /hpf Urine Bacteria Few H (None) /hpf Urine Mucus Rare H (None) /hpf Urine HCG, Qual Not Detected (Not Detectd) Disposition Clinical Impression: Groin pain Disposition: HOME SELF-CARE Condition: Fair Instructions (If sedation given, give patient instructions): Groin Pain (ED) Is patient prescribed a controlled substance at d/c from ED?: No Referrals: Nonstaff,Physician [Primary Care Provider] - 1-2 days
== END 2021-02-05 23:58 | disposition home or self-care (01) ==
LOC: EC 20:11
DX: R10.31 Right lower quadrant pain (principal); F17.200 Nicotine dependence, unspecified, uncomplicated; K21.9 Gastro-esophageal reflux disease without esophagitis; E78.5 Hyperlipidemia, unspecified; Z90.49 Acquired absence of other specified parts of digestive tract; Z88.8 Allergy status to other drugs, medicaments and biological substances; Z91.030 Bee allergy status; Z91.040 Latex allergy status; Z79.899 Other long term (current) drug therapy
CPT/HCPCS: 81001; 81025; 99283

== ENCOUNTER 2021-10-13 18:53 | Emergency (ER) | payer OTHER ==
[2021-10-13 19:40] VITALS: TEMP 98.5
[2021-10-13 22:42] LABS: Basophils % (A) 0 %; Eosinophils # (A) 0.1 k/uL (0-0.7); Eosinophils % (A) 1 %; HCT 45.8 % (34.0-46.0); HGB 15.8 gm/dL (11.4-16.0); Lymphocytes # (A) 2.1 k/uL (1.0-4.8); Lymphocytes % (A) 21 %; MCH 30.1 pg (25.0-35.0); MCHC 34.5 g/dL (31.0-37.0); MCV 87.3 fL (80.0-100.0); Mean Platelet Volume 7.5; Monocytes # (A) 0.4 k/uL (0-1.0); Monocytes % (A) 4 %; Neutrophils % (A) 72 %; Platelet Count 263 k/uL (150-450); RBC 5.25 m/uL (3.80-5.40); WBC 9.8 k/uL (3.8-10.6)
[2021-10-13 22:58] LABS: ALT 15 U/L (4-34); AST 19 U/L (14-36); African American GFR (CKD) >90 (>60 ml/min/1.73 sqM); Albumin 4.5 g/dL (3.5-5.0); Alkaline Phosphatase 82 U/L (38-126); Amylase 94 U/L (30-110); Anion Gap 15 mmol/L; Blood Urea Nitrogen 26 mg/dL (7-17); Carbon Dioxide 15 mmol/L (22-30); Chloride 106 mmol/L (98-107); Glucose 101 mg/dL (74-99); Lipase 64 U/L (23-300); Non-African American GFR(CKD) 79 (>60 ml/min/1.73 sqM); Potassium 4.4 mmol/L (3.5-5.1); Sodium 136 mmol/L (137-145); Total Bilirubin 0.6 mg/dL (0.2-1.3); Total Protein 7.7 g/dL (6.3-8.2)
[2021-10-13] MEDS ORDERED: SODIUM CHLORIDE 0.9% 1,000 ML IV STA (23:05)
[2021-10-13] MEDS ORDERED: ONDANSETRON 4 MG/2 ML VIAL IVP STA (23:05)
[2021-10-13] MEDS ORDERED: DIPHENOX-ATROP 2.5-0.025 MG 1 EACH TAB PO STA (23:09)
[2021-10-13] MEDS ORDERED: FAMOTIDINE 20 MG/2 ML VIAL IV STA (23:09)
--- NOTE | 2021-10-13 23:22 | ED ---
Nausea/Vomiting/Diarrhea HPI - General Chief complaint: Nausea/Vomiting/Diarrhea Stated complaint: NVD Time Seen by Provider: 10/13/21 19:45 Source: patient, family, RN notes reviewed Mode of arrival: ambulatory - History of Present Illness Initial comments: This is a 41-year-old female who presents to the emergency department for 2 days of upper abdominal pain, nausea, vomiting, and diarrhea. She does not believe that she has urinated since 3 PM yesterday, however she states that the diarrhea is liquid and she is not sure if she has unknowingly urinated with this. States that the diarrhea is green. Denies any recent antibiotic usage. Denies any fevers, chills, sore throat, cough, dyspnea, chest pain, palpitations, back pain, or headaches. MD complaint: nausea, vomiting, diarrhea, abdominal pain Onset/Timin -: days(s) Description of Diarrhea: water Associated Abdominal Pain: Yes Location: LUQ, RUQ - Related Data Home Medications Medication Instructions Recorded Confirmed Omeprazole 20 mg PO BID 01/11/17 08/25/18 Topiramate [Topamax] 100 mg PO BID 10/16/17 08/25/18 Naproxen [Naprosyn] 500 mg PO BID 04/18/18 08/25/18 Albuterol Inhaler [Ventolin Hfa 1 - 2 puff INHALATION RT-Q6H PRN 08/25/18 08/25/18 Inhaler] Amitriptyline HCl [Elavil] 50 mg PO HS 08/25/18 08/25/18 Atorvastatin [Lipitor] 20 mg PO DAILY 08/25/18 08/25/18 Galcanezumab-Gnlm [Emgality] 120 mg SQ Q28D 08/25/18 08/25/18 Previous Rx's Medication Instructions Recorded Diphenox-Atrop 2.5-0.025 mg 1 tab PO 5XD PRN 3 Days #15 tablet 10/14/21 [Lomotil] Ondansetron Odt [Zofran Odt] 4 mg PO Q8HR PRN #20 tab 10/14/21 Allergies Allergy/AdvReac Type Severity Reaction Status Date / Time atorvastatin [From Lipitor] Allergy Unknown Verified 10/13/21 19:40 bee pollen Allergy Swelling Verified 10/13/21 19:40 latex Allergy Rash/Hives Verified 10/13/21 19:40 Review of Systems ROS Statement: Those systems with pertinent positive or pertinent negative responses have been documented in the HPI. ROS Other: All systems not noted in ROS Statement are negative. Past Medical History Past Medical History: GERD/Reflux, Hyperlipidemia Additional Past Medical History / Comment(s): migraines, History of Any Multi-Drug Resistant Organisms: None Reported Past Surgical History: Cholecystectomy, Ear Surgery, Hernia Repair, Orthopedic Surgery, Tubal Ligation Past Psychological History: No Psychological Hx Reported Smoking Status: Current every day smoker Past Alcohol Use History: Occasional Past Drug Use History: None Reported General Exam Limitations: no limitations General appearance: alert, in no apparent distress Head exam: Present: atraumatic, normocephalic, normal inspection Respiratory exam: Present: normal lung sounds bilaterally. Absent: respiratory distress, wheezes, rales, rhonchi, stridor Cardiovascular Exam: Present: regular rate, normal rhythm, normal heart sounds. Absent: systolic murmur, diastolic murmur, rubs, gallop, clicks GI/Abdominal exam: Present: soft, hyperactive bowel sounds. Absent: distended, tenderness, guarding, rebound, rigid Neurological exam: Present: alert, oriented X3, CN II-XII intact Psychiatric exam: Present: normal affect, normal mood Skin exam: Present: warm, dry, intact, normal color. Absent: rash Course Vital Signs 10/13/21 10/14/21 19:36 01:06 Temperature 98.5 F Pulse Rate 83 73 Respiratory 18 16 Rate Blood Pressure 118/80 113/69 O2 Sat by Pulse 98 99 Oximetry Medical Decision Making - Medical Decision Making This is a 41-year-old female who presents the emergency department for nausea, v omiting, diarrhea, and abdominal pain. Her lab work was consistent with dehydration. Patient was given IV fluids, lomotil, pepcid, and Zofran. She noted substantial improvement following medication administration. Given the lack of urination and lethargy, computed tomography scan of the abdomen and pelvis was obtained. This revealed no acute irregularities to explain the patient's symptoms. Patient likely dehydrated and may have corresponding gastroenteritis. Prescription for Zofran and Lomotil provided to help with additional nausea, vomiting, and diarrhea. Instructed her to remain well- hydrated and slowly advance her diet as tolerated. Return precautions reviewed in depth, the patient is instructed to return to the emergency department with any new, worsening, or concerning symptoms. Patient verbalized understanding. This case was discussed in detail with the attending ED physician. Presentation, findings, and treatment plan discussed in detail as well. - Lab Data Result diagrams: 10/13/21 22:34 10/13/21 22:34 Lab Results 10/13/21 10/13/21 10/13/21 Range/Units 19:44 19:44 22:34 WBC 9.8 (3.8-10.6) k/uL RBC 5.25 (3.80-5.40) m/uL Hgb 15.8 (11.4-16.0) gm/dL Hct 45.8 (34.0-46.0) % MCV 87.3 (80.0-100.0) fL MCH 30.1 (25.0-35.0) pg MCHC 34.5 (31.0-37.0) g/dL RDW 13.0 (11.5-15.5) % Plt Count 263 (150-450) k/uL MPV 7.5 Neutrophils % 72 % Lymphocytes % 21 % Monocytes % 4 % Eosinophils % 1 % Basophils % 0 % Neutrophils # 7.0 (1.3-7.7) k/uL Lymphocytes # 2.1 (1.0-4.8) k/uL Monocytes # 0.4 (0-1.0) k/uL Eosinophils # 0.1 (0-0.7) k/uL Basophils # 0.0 (0-0.2) k/uL Sodium (137-145) mmol/L Potassium (3.5-5.1) mmol/L Chloride (98-107) mmol/L Carbon Dioxide (22-30) mmol/L Anion Gap mmol/L BUN (7-17) mg/dL Creatinine (0.52-1.04) mg/dL Est GFR (CKD-EPI)AfAm (>60 ml/min/1.73 sqM) Est GFR (CKD-EPI)NonAf (>60 ml/min/1.73 sqM) Glucose (74-99) mg/dL Calcium (8.4-10.2) mg/dL Total Bilirubin (0.2-1.3) mg/dL AST (14-36) U/L ALT (4-34) U/L Alkaline Phosphatase (38-126) U/L Total Protein (6.3-8.2) g/dL Albumin (3.5-5.0) g/dL Amylase (30-110) U/L Lipase (23-300) U/L Coronavirus (PCR) Not Detected (Not Detectd) Influenza Type A RNA Not Detected (Not Detectd) Influenza Type B (PCR) Not Detected (Not Detectd) 10/13/21 Range/Units 22:34 WBC (3.8-10.6) k/uL RBC (3.80-5.40) m/uL Hgb (11.4-16.0) gm/dL Hct (34.0-46.0) % MCV (80.0-100.0) fL MCH (25.0-35.0) pg MCHC (31.0-37.0) g/dL RDW (11.5-15.5) % Plt Count (150-450) k/uL MPV Neutrophils % % Lymphocytes % % Monocytes % % Eosinophils % % Basophils % % Neutrophils # (1.3-7.7) k/uL Lymphocytes # (1.0-4.8) k/uL Monocytes # (0-1.0) k/uL Eosinophils # (0-0.7) k/uL Basophils # (0-0.2) k/uL Sodium 136 L (137-145) mmol/L Potassium 4.4 (3.5-5.1) mmol/L Chloride 106 (98-107) mmol/L Carbon Dioxide 15 L (22-30) mmol/L Anion Gap 15 mmol/L BUN 26 H (7-17) mg/dL Creatinine 0.90 (0.52-1.04) mg/dL Est GFR (CKD-EPI)AfAm >90 (>60 ml/min/1.73 sqM) Est GFR (CKD-EPI)NonAf 79 (>60 ml/min/1.73 sqM) Glucose 101 H (74-99) mg/dL Calcium 9.0 (8.4-10.2) mg/dL Total Bilirubin 0.6 (0.2-1.3) mg/dL AST 19 (14-36) U/L ALT 15 (4-34) U/L Alkaline Phosphatase 82 (38-126) U/L Total Protein 7.7 (6.3-8.2) g/dL Albumin 4.5 (3.5-5.0) g/dL Amylase 94 (30-110) U/L Lipase 64 (23-300) U/L Coronavirus (PCR) (Not Detectd) Influenza Type A RNA (Not Detectd) Influenza Type B (PCR) (Not Detectd) - Radiology Data Radiology results: report reviewed, image reviewed Disposition Clinical Impression: Dehydration, Nausea Disposition: HOME SELF-CARE Instructions (If sedation given, give patient instructions): Acute Nausea and Vomiting (ED), Acute Diarrhea (ED) Additional Instructions: Return to the emergency department with any new, worsening, or concerning symptoms. Make sure that you remain well-hydrated. Zofran can be taken up to every 8 hours as needed for nausea and vomiting. Lomotil can be taken as needed for diarrhea, no more than 8 tablets in a 24-hour period. Slowly advance your diet as tolerated. Prescriptions: Diphenox-Atrop 2.5-0.025 mg [Lomotil] 1 tab PO 5XD PRN 3 Days #15 tablet PRN Reason: Diarrhea Ondansetron Odt [Zofran Odt] 4 mg PO Q8HR PRN #20 tab PRN Reason: Nausea And Vomiting Is patient prescribed a controlled substance at d/c from ED?: Yes When asked, does pt state using other controlled substances?: No If prescribed controlled substance>3 days was MAPS reviewed?: Prescribed <3 Days Referrals: Nonstaff,Physician [Primary Care Provider] - 1-2 days
--- NOTE | 2021-10-14 01:04 | CT ---
EXAMINATION TYPE: CT abdomen pelvis w con DATE OF EXAM: 10/14/2021 COMPARISON: None HISTORY: abd pain CT DLP: 1333.5 mGycm Automated exposure control for dose reduction was used. CONTRAST: Performed with IV Contrast, patient injected with 100 mL of Isovue 300. Images obtained from the diaphragm to the floor the pelvis with IV contrast. The lung bases are clear. No pleural effusion. Heart size is normal. No pericardial effusion. Liver spleen stomach pancreas appear intact. There are clips from cholecystectomy. The bile ducts are not dilated. There is no adrenal mass. Kidneys show satisfactory contrast opacification. There is no hydronephrosis. Delayed images show normal renal excretion. There is no retroperitoneal adenopathy. Ureters are not d ilated. The bladder distends smoothly. No inguinal hernia. No free fluid in the pelvis. Uterus is ant everted. No pelvic mass. There is some left adnexal prominent vessels. Appendix is medial and appears normal. There is no mesenteric edema. No ascites or free air. No sign of a bowel obstruction. There are sigmo id diverticula without diverticulitis. The lumbar vertebra appear intact. No compression fracture. Bony pelvis is intact. Posterior elements of the lumbar spine are intact. The hip joints are intact. IMPRESSION: There are some varices in the left adnexal region in the pelvis. No pelvic mass. Mild sigmoid diverticulosis. No diverticulitis. Normal appendix.
[2021-10-14 01:06] VITALS: BP 113/69; PULSE 73; RESP 16
[2021-10-14] MEDS ORDERED: DIPHENOX-ATROP STARTER PACK 8 TAB BTL PO STA (01:18)
[2021-10-14] MEDS ORDERED: ONDANSETRON 4 MG ODT STARTER PACK 2 TAB BTL PO STA (01:18)
== END 2021-10-14 01:44 | disposition home or self-care (01) ==
LOC: EC 18:53
DX: R11.2 Nausea with vomiting, unspecified (principal); E86.0 Dehydration; E78.5 Hyperlipidemia, unspecified; F17.200 Nicotine dependence, unspecified, uncomplicated; K21.9 Gastro-esophageal reflux disease without esophagitis; Z79.83 Long term (current) use of bisphosphonates; Z91.030 Bee allergy status; Z91.040 Latex allergy status; Z88.8 Allergy status to other drugs, medicaments and biological substances
CPT/HCPCS: 36415; 80053; 82150; 83690; 85025; 87502; 87635; 99284; 96374; 96375; 96361; J2405; 74177